=== PATIENT | female | born 2000 | race Two or more races ===

== ENCOUNTER → 2020-06-21 13:47 | Emergency (ER) | payer SELFPAY | END | disposition left against medical advice (07) | LOC: ER 13:47 | DX: R42 Dizziness and giddiness (principal); Z53.21 Procedure and treatment not carried out due to patient leaving prior to being seen by health care provider ==

== ENCOUNTER → 2020-06-27 | Emergency (ER) | payer SELFPAY | END | disposition left against medical advice (07) | LOC: ER 15:09 | DX: R42 Dizziness and giddiness (principal); Z53.21 Procedure and treatment not carried out due to patient leaving prior to being seen by health care provider ==